=== PATIENT | male | born 1940 | race Caucasian/White ===

== ENCOUNTER 2016-11-25 12:07 | Emergency (ER) | payer MEDICARE ==
[~2016-11-25] VITALS: Ht 182.9 cm; Wt 79.5 kg
[2016-11-25 12:16] VITALS: BP 184/76; PULSE 79; RESP 12; O2SAT 100
--- NOTE | 2016-11-25 12:26 | ED.REPORT ---
HPI-Neurologic Deficit Date of Service November 25, 2016 ED Provider: Jl Reyes DO A pleasant 76 year old male presents to the ER complaining of six days of intermittent left facial tingling. Episodes of symptoms last hours at a time. He is unable to identify any pattern to the onset of symptoms, or any behaviors or activities that exacerbate or relieve symptoms. Patient denies lateralized weakness/paralysis, difficulty ambulating, visual changes, speech difficulty, headache, ear pain, and any other symptoms. He takes 81mg ASA daily, and enjoys several glasses of wine before dinner each night. Nursing Notes Stated Complaint: FACIAL TINGLING Chief Complaint: Neuro Symptoms/ Deficits Nursing Notes Reviewed: Yes Allergies: Coded Allergies: codeine (Verified Allergy, Unknown, 11/25/16) Scheduled Aspirin Chew (Aspirin Chew) 81 Mg Chew 81 MG PO DAILY Magnesium (Magnesium) 200 Mg Tablet 200 MG PO DAILY General Time Seen by Provider: 12:22 Chief Complaint Other (Left Facial Tingling) Hx Obtained From: Patient Arrived By: Walk-in Sudden in Onset?: No Onset Occurred: 6 days ago Symptom Duration: Intermittent Pertinent Negative: Pt denies other symptoms Similar Sx Previous: No Risk Factors NIH Stroke Scale Level of Consciousness: Alert and responsive (0) Ask Month & Age: Both questions right (0) Open/Close Eyes/Hand Student Support Services Director: Performs both tasks (0) Horizontal EO Movements: None (0) Visual Echeverria: No visual loss (0) Facial Palsy: Normal symmetry (0) Right Arm Motor Drift (10s): No drift 10 sec (0) Left Arm Motor Drift (10s): No drift 10 sec (0) Right Leg Motor Drift (5s): No drift 5 sec (0) Left Leg Motor Drift (5s): No drift 5 sec (0) Limb Ataxia FNF/Heel-Turner: No ataxia (0) Sensation (Arms/Legs/Face): Pinprick less sharp (1) (Left Face and Leg) Language Aphasia: No aphasia, normal (0) Dysarthria: No dysarthria, normal (0) Extinction/Inattention: No exctinct/inattent (0) NIHSS Score: 1 Time NIHSS Performed: 12:43 Date NIHSS Performed: November 25, 2016 Past Medical History Past Surgical History Bilateral rotator cuff repair Reports: Back/neck surgery (L3-L5 laminectomy) Smoking History Never Smoker Social History Alcohol Use: 1-3 per day (several glasses of wine daily, before dinner) Ambulatory Status Independent Review of Systems Review of Systems Note: +Left Facial Tingling Eyes: Denies: Visual loss bilateral Neurologic: Denies: Change LOC, Dizziness, Focal weakness, Headache, Problem walking, Slurred speech, Syncope, Unable to speak, Vision change, Weakness Complete sys rev & neg: except as marked. Physical Exam Physical Exam Notes: No vesicular lesions no otitis media or mastoiditis Initial Vital Signs Vital Signs (First) Date Time Temp Pulse Resp B/P Pulse Ox O2 Delivery O2 Flow Rate FiO2 11/25/16 12:16 36.8 79 12 184/76 100 Room Air Initial VS: Reviewed Neck: Supple, Non-tender, Full range of motion Extremities: Vascular intact, Neuro intact, No swelling, No tenderness Skin: Warm, Dry, No cyanosis General/Constitutional: Awake, Alert, No acute distress, Well appearing, Well developed, Well hydrated, Cooperative, Not toxic appearing Thin. Head / Eyes: Atraumatic, Normocephalic Respiratory / Chest: Breath sounds NL, Breath sounds = bilat, No respiratory distress, No rales, No rhonchi, No wheezing Cardiovascular: Heart rate NL, Heart sounds NL, Peripheral circulation NL Heart Rate / Rhythm: Positive: Irregular rhythm Neurologic: Oriented X3, Speech NL, No motor deficits, CN II - XII intact, Cerebellar NL, Memory NL, Gait NL See NIH Stroke Scale in the Risk section of this note. ENT: Airway patent, Mucous membranes moist, Pharynx NL, Tympanic membs NL, Ext aud canal NL Interpretation & Diagnostics MRI BRAIN WITHOUT CONTRAST ([id number]) INDICATIONS: Left face and leg numbness IMPRESSION: 1. No acute intracranial abnormalities. No recent infarct. 2. Mild volume loss and small vessel ischemic disease. Dictated by: Mike Riggs M.D. on 11/25/2016 at 14:33 Approved by: Mike Riggs M.D. on 11/25/2016 at 14:34 Lab Results Interpretation Result Diagram: 11/25/16 1240 11/25/16 1240 Test 11/25/16 12:40 11/25/16 13:46 White Blood Count 6.4th/mm3 (3.8-10.1) Red Blood Count 4.82mil/mm3 (4.40-5.80) Hemoglobin 14.5g/dL (13.8-17.2) Hematocrit 43.0% (41.0-50.0) Mean Corpuscular Volume 89.2fL (81-100) Mean Corpuscular Hemoglobin 30.1pg (27.0-35.0) Mean Corpuscular Hemoglobin Concent 33.7% (32.0-37.0) Red Cell Distribution Width 13.8% (12.3-15.4) Platelet Count 269bil/L (150-400) Neutrophils (%) (Auto) 61.2% (40-74) Lymphocytes (%) (Auto) 22.2% (14-46) Monocytes (%) (Auto) 11.9% (4-12) Eosinophils (%) (Auto) 3.6% (0-5) Basophils (%) (Auto) 0.9% (0-3) Sodium Level 140mEq/L (134-144) Potassium Level 4.1mEq/L (3.5-5.2) Chloride Level 100mEq/L (97-108) Carbon Dioxide Level 24mmol/L (18-29) Blood Urea Nitrogen 18mg/dL (8-27) Creatinine 0.69mg/dL (0.76-1.27) Estimat Glomerular Filtration Rate 118mL/min (>59) Glucose Level 117mg/dL (60-99) Calcium Level 9.3mg/dL (8.5-10.1) Total Bilirubin 0.5mg/dL (0.0-1.2) Aspartate Amino Transf (AST/SGOT) 29U/L (0-50) Alanine Aminotransferase (ALT/SGPT) 22U/L (0-44) Alkaline Phosphatase 50U/L (25-160) Total Protein 7.3g/dL (6.4-8.4) Albumin 4.3g/dL (3.4-5.0) Urine Color Straw (YELLOW) Urine Appearance Hazy (CLEAR,HAZY) Urine pH 6.0 (5.0-8.0) Urine Specific [place] 1.005 (1.003-1.035) Urine Protein Negativemg/dL (NEG,TRACE) Urine Glucose (UA) Negativemg/dL (NEGATIVE) Urine Ketones Negativemg/dL (NEGATIVE) Urine Occult Blood Small (NEGATIVE) Urine Nitrite Negative (NEGATIVE) Urine Bilirubin Negative (NEGATIVE) Urine Urobilinogen Normalmg/dL (NORMAL) Urine Leukocyte Esterase Negative (NEGATIVE) Urine RBC 0-2/hpf (0-2) Urine WBC 0-5/hpf (0-5) Urine Epithelial Cells Occasional/hpf (NONE-MOD) Urine Crystals None seen (NONE SEEN) Urine Bacteria None/hpf (NONE-FEW) Urine Hyaline Casts None/lpf (NONE) Urine Granular Casts None seen (NONE SEEN) Urine Waxy Casts None seen (NONE SEEN) Urine Red Blood Cell Casts None seen (NONE SEEN) Urine White Blood Cell Casts None seen (NONE SEEN) Urine Mucus None seen (None Seen) Urine Trichomonas None seen (NONE SEEN) Urine Yeast None (NONE SEEN) Urinalysis Comment Urine Culture Reflexed Not indicated ECG Interpretation ECG Interpretation: Sinus rhythm, rate 64 PAC's 1st degree AV block Time: 13:29 Interpreted by: ED physician CT Head Interpretation IMPRESSION: No acute intracranial disease process. Dictated by: Sylvia Matt MD, PhD on 11/25/2016 at 13:10 Approved by: Sylvia Matt MD, PhD on 11/25/2016 at 13:12 Study: Head CT no contrast Interpretation / Wet Read by: Interpret - Radiologist Re-Eval/Medical Decision Med Decision/Clinical Course Facial paresthesia with left leg numbness concerning for possible stroke pattern, MRI negative symptoms are rather minor this does not seem to be an ischemic stroke based on MRI. It does not seem to be shingles, otitis media, mastoiditis, or other life threatening pathology. Discharge and follow-up precautions given. Source of Hx: Old records Re-Evaluation/Progress #1: Time of Eval: 12:45 Re-Evaluation/Progress Note: Updated patient on the plan of care. Re-Evaluation/Progress #2: Time of Eval: 13:34 Re-Evaluation/Progress Note: Discussed CT results and need for MRI. Patient understands and agrees to the plan. All questions addressed. Re-Evaluation/Progress #3: Time of Eval: 14:43 Re-Evaluation/Progress Note: Discussed MRI results and plan to discharge. Patient is amenable to the plan. Return precautions given. All other questions addressed. Counseled Regarding: Diagnosis, Lab results, Need for follow-up, When/why to return to ED Discharge & Departure Impression: Primary Impression: Facial paresthesia Disposition: Home Discharge Condition All VS Reviewed: Yes Condition: Stable Additional Instructions: Your workup today was reassuring. There is no indication of stroke on your CT or MRI. Continue taking your aspirin daily. Follow-up with your primary care provider in 1-2 days. Return to the ER if you develop worsening symptoms, severe headache, changes in vision, difficulty walking, difficulty speaking, weakness, confusion, or any other concerning symptoms. Referrals: [facility] Gi[facility]ani Attestation Portions of this note were transcribed by Carl Houser. I, Dr. Reyes, personally performed the history, physical exam and medical decision-making; I reviewed and confirmed the accuracy of the information in the transcribed note. Signed by: Giovani Trevizo, 11/25/2016 and 14:43 copies to: [facility] Jl Reyes DO November 25, 2016 12:26 CARL HOUSER November 25, 2016 12:35
[2016-11-25] MEDS ORDERED: MAGN200T PO (12:41)
[2016-11-25] MEDS ORDERED: ASPI81TA3 PO (12:41)
[2016-11-25] MEDS ORDERED: 0.9% Sodium Chloride 1,000 ML IV ONE (12:47)
[2016-11-25 12:53] LABS: BASOPHILS % (AUTO) 0.9 % (0-3); EOSINOPHILS % (AUTO) 3.6 % (0-5); MONOCYTES % (AUTO) 11.9 % (4-12); Mean Corpuscular Hemoglobin 30.1 pg (27.0-35.0); Mean Corpuscular Volume 89.2 fL (81-100); NEUTROPHILS % (AUTO) 61.2 % (40-74); Platelet Count 269 bil/L (150-400)
--- NOTE | 2016-11-25 13:13 | DRSVH ---
PROCEDURE: CT BRAIN WITHOUT CONTRAST ([id number]) INDICATIONS: Stroke TECHNIQUE: Noncontrast 4.5 mm thick angled axial sections acquired from the foramen magnum to the vertex, with c oronal reformats. COMPARISON: None. FINDINGS: Image quality: Excellent. CSF spaces: Basal cisterns are patent. No extra-axial fluid collections. The ventricles are symmet shellie in size and shape. Brain: No intracranial bleeds or masses. There is cerebral volume loss for age, with resultant vent ricular and sulcal prominence. There are periventricular and deep white matter chronic small vessel ischemic changes. There is intracranial internal carotid artery atherosclerosis. Skull and face: Calvarium and visualized facial bones appear intact, without suspicious lesions. Sinuses: Visualized sinuses and mastoids are clear. IMPRESSION: No acute intracranial disease process. Dictated by: Sylvia Matt MD, PhD on 11/25/2016 at 13:10 Approved by: Sylvia Matt MD, PhD on 11/25/2016 at 13:12
[2016-11-25 14:00] VITALS: BP 162/68; PULSE 70; RESP 16; O2SAT 100
--- NOTE | 2016-11-25 14:10 | NUR ---
Evaluation completed. Please go to "Notes" then click on "Assessments and Notes" (bottom left corner of screen). Then select appropriate discipline tab on top of screen.
[2016-11-25 14:11] LABS: APPEARANCE,URINE HAZY (CLEAR,HAZY); COLOR,URINE STRAW (YELLOW); OCCULT BLOOD,URINE SMALL (NEGATIVE); UROBILINOGEN,URINE NORMAL (NORMAL)
--- NOTE | 2016-11-25 14:35 | DRSVH ---
PROCEDURE: MRI BRAIN WITHOUT CONTRAST ([id number]) INDICATIONS: Left face and leg numbness TECHNIQUE: Non-contrast axial T1 spin echo, axial T2 fast spin echo, sagittal and axial FLAIR, coronal T2 fast s pin echo, axial gradient echo, axial diffusion and ADC through the brain. COMPARISON: [facility], CT, CT BRAIN WO CON, 11/25/2016, 12:57. FINDINGS: Image quality: Excellent. CSF spaces: Ventricles appear symmetric in size and shape. Basal cisterns are patent. No extra-axi al fluid collections. Brain: No intracranial bleeds or mass effects. There is cerebral volume loss for age. There are pe riventricular and deep white matter chronic small vessel ischemic changes. Brainstem appears normal. Diffusion-weighted images show no acute ischemic insults. No chronic ischemic insults. Normal int ravascular flow voids are present. Skull and face: Calvarial bone marrow is normal in signal. Orbits are normal. Sinuses: Sinuses and mastoids are clear. IMPRESSION: 1. No acute intracranial abnormalities. No recent infarct. 2. Mild volume loss and small vessel ischemic disease. Dictated by: Mike Riggs M.D. on 11/25/2016 at 14:33 Approved by: Mike Riggs M.D. on 11/25/2016 at 14:34
[2016-11-25 15:06] VITALS: BP 152/72; PULSE 72; RESP 16; O2SAT 100
[2016-11-25 15:10] VITALS: BP 152/72; PULSE 72; RESP 16; O2SAT 100
== END 2016-11-25 15:11 | disposition home or self-care (01) ==
LOC: SED 12:07
DX: R20.2 Paresthesia of skin (principal); Z79.82 Long term (current) use of aspirin; Z88.5 Allergy status to narcotic agent
CPT/HCPCS: 36415; 70450; 70551; 80053; 81000; 82948; 85025; 92610; 93005; 99285; J7030